=== PATIENT | female | born 1995 | race Caucasian/White ===

== ENCOUNTER 2017-12-03 11:16 | Emergency (ER) | payer BC ==
[2017-12-03] MEDS ORDERED: NA CHLORIDE 0.9% 1,000 ML ONE ×2 (11:54→14:40)
[2017-12-03 12:04] LABS: Absolute Lymphocytes (CBC) 1.3 K/uL (0.7-4.9); Absolute Monocytes 0.8 K/uL (0.1-1.3); Absolute Neutrophil 9.1 K/uL (1.8-8.0); Basophils % 0.4 % (0-1.3); Eosinophils % 0.4 % (0-4.4); Hematocrit 39.4 % (36.0-45.0); Lymphocytes % 11.7 % (15.3-44.8); MCH 25.5 pg (27.0-35.0); MCV 79.9 fL (80-100); MPV 8.5 fL (7.6-11.3); RBC Red Blood Cell Count 4.93 M/uL (3.86-4.86)
[2017-12-03 12:18] LABS: BUN Blood Urea Nitrogen 13 mg/dL (6-20); Bicarbonate 25 mEq/L (21-31); Glucose Level 112 mg/dL (65-120); Potassium 3.4 mEq/L (3.6-5.0); Sodium Level 137 mEq/L (135-145)
[2017-12-03 12:34] LABS: T3 Free 4.19 pg/ml (2.84-4.24)
[2017-12-03 12:52] LABS: Thyroid Stimulating Hormone 0.41 uIU/mL (0.34-5.60)
--- NOTE | 2017-12-03 13:04 | RAD REPORT ---
EXAM DESCRIPTION: US - Thyroid Para Parotid Gland - 12/03/2017 12:32 pm CLINICAL HISTORY: ICD R 22.1 thyroid nodule COMPARISON: None FINDINGS: The right lobe of the thyroid measures 4.3 x 1.6 x 1.3 centimeters. The left lobe of the thyroid measures 4.3 x 1.4 x 1.5 centimeters. Several nodules are present within each lobe of the thyroid gland measuring a couple of millimeters. IMPRESSION: Small bilateral thyroid nodules measuring a couple millimeters likely are benign
--- NOTE | 2017-12-03 14:39 | EKG ---
Test Date: 2017-12-03 Test Time: 11:56:53 Mold Carpenter: BOB MEASUREMENT RESULTS: Intervals: Rate: 133 NE: 128 QRSD: 68 QT: 306 QTc: 455 [place]: P: 74 NE: 128 QRS: 70 T: -3 INTERPRETIVE STATEMENTS: Sinus tachycardia Right atrial enlargement Nonspecific ST abnormality Abnormal QRS-T angle, consider primary T wave abnormality Abnormal ECG No previous ECG available for comparison Electronically Signed On 12-03-17 14:39:07 CDT by Ryan Morales
[2017-12-03] MEDS ORDERED: POTASSIUM CL SA 10 MEQ TAB PO ONE (14:40)
--- NOTE | 2017-12-03 15:03 | EDPHYS ---
Physician Documentation [facility] Name: Renae Barajas Age: 22 yrs Sex: Female : 1995 Arrival Date: 12/03/2017 Time: 11:21 Bed 14 Private MD: ED Physician Luis Armando Zacarias HPI: 12/03 14:59 This 22 yrs old Female presents to ER via Ambulatory with complaints of kb Palpitations. 14:[address] Butts's office for annual exam, heart rate was 180 in the office so kb she was sent to the ER. Denies shortness of breath, palpitations, chest pain. Only complaint is being "tired because I didn't sleep much last night.". Onset: The symptoms/episode began/occurred just prior to arrival. Severity of symptoms: At their worst the symptoms were severe in the emergency department the symptoms are unchanged. The patient has not experienced similar symptoms in the past. The patient has not recently seen a physician. Historical: - Allergies: 11:25 No Known Allergies; hb - Home Meds: 12:08 clonazepam 1 mg Oral tab at bedtime [Active]; Vyvanse 60 mg oral cap 1 cap once daily aa5 [Active]; [place] Thyroid 30 mg Oral tab [Active]; cabergoline 0.5 mg oral tab 2 times per wk [Active]; - PMHx: 11:25 ADD/ADHD; hb 11:26 hyperthyroidism; hb - PSHx: 11:25 None; hb - Immunization history:: Adult Immunizations up to date. - Social history:: Smoking status: Patient/guardian denies using tobacco. ROS: 14:59 Constitutional: Negative for fever, chills, and weight loss, ENT: Negative for injury, kb pain, and discharge, Neck: Negative for injury, pain, and swelling, Cardiovascular: Negative for chest pain, palpitations, and edema, Respiratory: Negative for shortness of breath, cough, wheezing, and pleuritic chest pain, Abdomen/GI: Negative for abdominal pain, nausea, vomiting, diarrhea, and constipation, Back: Negative for injury and pain, : Negative for injury, bleeding, discharge, and swelling, MS/Extremity: Negative for injury and deformity, Skin: Negative for injury, rash, and discoloration, Neuro: Negative for headache, weakness, numbness, tingling, and seizure. Exam: 14:59 Constitutional: This is a well developed, well nourished patient who is awake, alert, kb and in no acute distress. Head/Face: Normocephalic, atraumatic. ENT: Nares patent. No nasal discharge, no septal abnormalities noted. Tympanic membranes are normal and external auditory canals are clear. Oropharynx with no redness, swelling, or masses, exudates, or evidence of obstruction, uvula midline. Mucous membranes moist. Neck: Trachea midline, no thyromegaly or masses palpated, and no cervical lymphadenopathy. Supple, full range of motion without nuchal rigidity, or vertebral point tenderness. No Meningismus. Chest/axilla: Normal chest wall appearance and motion. Nontender with no deformity. No lesions are appreciated. Respiratory: Lungs have equal breath sounds bilaterally, clear to auscultation and percussion. No rales, rhonchi or wheezes noted. No increased work of breathing, no retractions or nasal flaring. Abdomen/GI: Soft, non-tender, with normal bowel sounds. No distension or tympany. No guarding or rebound. No evidence of tenderness throughout. Back: No spinal tenderness. No costovertebral tenderness. Full range of motion. Skin: Warm, dry with normal turgor. Normal color with no rashes, no lesions, and no evidence of cellulitis. MS/ Extremity: Pulses equal, no cyanosis. Neurovascular intact. Full, normal range of motion. Neuro: Awake and alert, GCS 15, oriented to person, place, time, and situation. Cranial nerves II-XII grossly intact. Motor strength 5/5 in all extremities. Sensory grossly intact. Cerebellar exam normal. Normal gait. 14:59 Cardiovascular: Rate: tachycardic, Rhythm: regular, Pulses: no pulse deficits are appreciated, Heart sounds: normal, normal S1and S2, no S3 or S4. Vital Signs: 11:22 BP 127 / 90; Pulse 179; Resp 16; Temp 97.9; Pulse Ox 98% on R/A; Pain 0/10; hb 12:52 BP 114 / 70; Pulse 135; Resp 18; Pulse Ox 98% ; ph 13:30 BP 111 / 85; Pulse 117; Resp 21; Pulse Ox 99% on R/A; mh5 15:11 BP 117 / 84; Pulse 109; Resp 18; Temp 97.4; Pulse Ox 98% on R/A; ph 16:30 BP 117 / 78; Pulse 106; Resp 18; Temp 97.2; Pulse Ox 98% on R/A; ph MDM: 11:27 Patient medically screened. kb 14:58 Data reviewed: vital signs, nurses notes. Data interpreted: Pulse oximetry: on room air kb is 99 %. Interpretation: normal. Counseling: I had a detailed discussion with the patient and/or guardian regarding: the historical points, exam findings, and any diagnostic results supporting the discharge/admit diagnosis, lab results, radiology results, the need for outpatient follow up, Endocrine, to return to the emergency department if symptoms worsen or persist or if there are any questions or concerns that arise at home. 16:10 ED course: Pt condition discussed with Dr Zacarias. Will start propranolol and pt will kb follow up with panel monitor. . 12/03 11:35 Order name: CBC with Diff; Complete Time: 12:16 kb 12/03 11:35 Order name: Basic Metabolic Panel; Complete Time: 12:52 kb 12/03 11:35 Order name: TSH; Complete Time: 12:52 kb 12/03 11:35 Order name: T3 Free; Complete Time: 12:52 kb 12/03 11:35 Order name: T4 Free; Complete Time: 12:52 kb 12/03 12:14 Order name: Prolactin EDRI 12/03 11:45 Order name: Thyroid Para Parotid Gland; Complete Time: 13:06 EDRI 12/03 12:54 Order name: Strep; Complete Time: 14:09 kb 12/03 13:56 Order name: Throat Culture EDRI 12/03 15:01 Order name: Urine Dipstick--Ancillary (enter results); Complete Time: 15:05 bd 12/03 15:01 Order name: Urine --Ancillary (enter results); Complete Time: 15:05 bd 12/03 11:35 Order name: IV Start; Complete Time: 11:52 kb 12/03 11:35 Order name: Urine Dipstick-Ancillary (obtain specimen); Complete Time: 16:57 kb 12/03 11:35 Order name: Urine Test (obtain specimen); Complete Time: 16:57 kb 12/03 11:41 Order name: EKG; Complete Time: 11:41 kb 12/03 11:41 Order name: EKG - Nurse/Tech; Complete Time: 12:05 kb Administered Medications: 11:59 Drug: NS 0.9% 1000 ml Route: IV; Rate: 1000 ml; Site: left antecubital; aa5 16:57 Follow up: Response: No adverse reaction; IV Status: Completed infusion ph 14:24 Not Given (Physician Discretion): Propranolol 10 mg PO once kb 14:45 Drug: Potassium Chloride 20 mEq Route: PO; ph 16:56 Follow up: Response: No adverse reaction ph 14:45 Drug: NS 0.9% 1000 ml Route: IV; Rate: 1000 ml; Site: right antecubital; ph 16:56 Follow up: Response: No adverse reaction; IV Status: Completed infusion ph 16:54 Drug: Propranolol 10 mg Route: PO; ph 16:56 Follow up: Response: No adverse reaction ph Disposition: 20:55 Co-signature as Attending Physician, Luis Armando Zacarias MD. rn Disposition: 12/03/17 15:03 Discharged to Home. Impression: Tachycardia, unspecified, Dehydration. - Condition is Stable. - Discharge Instructions: Hyperthyroidism. - Prescriptions for Propranolol 10 mg Oral Tablet - take 1 tablet by ORAL route every 8 hours; 21 tablet. - Medication Reconciliation Form, Thank You Letter, Antibiotic Education, Prescription Opioid Use form. - Follow up: Emergency Department; When: As needed; Reason: Worsening of condition. Follow up: Private Physician; When: 2 - 3 days; Reason: Recheck today's complaints, Continuance of care, Re-evaluation by your physician. Signatures: Dispatcher [employer] EDRI Sima Angel, OBSTETRICIAN-C OBSTETRICIAN-Ckb Luis Armando Zacarias MD MD rn Calderon, Audri, RN RN aa5 Marlena King, MATTEO RN Vera Carcamo, RN RN Corrections: (The following items were deleted from the chart) 12:08 11:25 Home Meds: vivance; hb aa5 12:08 11:25 Home Meds: clonazepam 1 mg Oral tab nightly; hb aa5 12:08 11:26 Home Meds: unknown hyperthyroid med; hb aa5 16:58 15:03 12/03/2017 15:03 Discharged to Home. Impression: Tachycardia, unspecified; ph Dehydration. Condition is Stable. Forms are Medication Reconciliation Form, Thank You Letter, Antibiotic Education, Prescription Opioid Use. Follow up: Emergency Department; When: As needed; Reason: Worsening of condition. Follow up: Private Physician; When: 2 - 3 days; Reason: Recheck today's complaints, Continuance of care, Re-evaluation by your physician. kb
--- NOTE | 2017-12-03 15:03 | ER ---
Nurse's Notes [facility] Name: Renae Barajas Age: 22 yrs Sex: Female : 1995 Arrival Date: 12/03/2017 Time: 11:21 Bed 14 Private MD: Diagnosis: Tachycardia, unspecified;Dehydration Presentation: 12/03 11:23 Presenting complaint: Patient states: N/V/D x [address] Butts's office hb for HR 180s. Transition of care: patient was received from another setting of care (ambulatory primary care physician practice), Dr. Butts. Onset of symptoms was December 03, 2017. Initial Sepsis Screen: Does the patient meet any 2 criteria?. Care prior to arrival: None. 11:23 Method Of Arrival: Ambulatory hb 11:23 Acuity: HARRIET 2 hb 12:52 Initial Sepsis Screen: Does the patient have a suspected source of infection? No. ph Patient's initial sepsis screen is negative. Historical: - Allergies: 11:25 No Known Allergies; hb - Home Meds: 12:08 clonazepam 1 mg Oral tab at bedtime [Active]; Vyvanse 60 mg oral cap 1 cap once daily aa5 [Active]; [place] Thyroid 30 mg Oral tab [Active]; cabergoline 0.5 mg oral tab 2 times per wk [Active]; - PMHx: 11:25 ADD/ADHD; hb 11:26 hyperthyroidism; hb - PSHx: 11:25 None; hb - Immunization history:: Adult Immunizations up to date. - Social history:: Smoking status: Patient/guardian denies using tobacco. Screenin:05 Abuse screen: Denies threats or abuse. Denies injuries from another. Nutritional ph screening: No deficits noted. Tuberculosis screening: No symptoms or risk factors identified. Fall Risk None identified. Assessment: 11:45 General: Appears in no apparent distress. comfortable, slender, well groomed, Behavior ph is calm, cooperative, appropriate for age, Denies fever, feeling ill. Pain: Denies pain. Neuro: Level of Consciousness is awake, alert, obeys commands, Oriented to person, place, time, situation. Cardiovascular: Reports fatigue, nausea, vomiting, Denies chest pain, palpitations, shortness of breath, Capillary refill < 3 seconds in bilateral fingers Patient's skin is warm and dry. Rhythm is sinus tachycardia. Respiratory: Airway is patent Respiratory effort is even, unlabored, Respiratory pattern is regular, symmetrical. GI: Abdomen is flat, non-distended, Bowel sounds present X 4 quads. Abd is soft and non tender X 4 quads. Reports diarrhea, nausea, vomiting, x 2 days. Derm: Skin is intact, is healthy with good turgor, Skin is pink, warm \T\ dry. Musculoskeletal: Circulation, motion, and sensation intact. Range of motion: intact in all extremities. 12:48 Reassessment: Patient appears in no apparent distress at this time. Patient and/or ph family updated on plan of care and expected duration. Pain level reassessed. Patient is alert, oriented x 3, equal unlabored respirations, skin warm/dry/pink. Pt ambulated to restroom, gait steady, denies dizziness, urine sample obtained, family at bedside, awiaiting lab results. 15:12 Reassessment: Patient appears in no apparent distress at this time. Patient and/or ph family updated on plan of care and expected duration. Pain level reassessed. Patient is alert, oriented x 3, equal unlabored respirations, skin warm/dry/pink. ERP at bedside to speak w/ pt, awaiting discharge, family at bedside. 16:00 Reassessment: Patient appears in no apparent distress at this time. Patient and/or ph family updated on plan of care and expected duration. Pain level reassessed. Patient is alert, oriented x 3, equal unlabored respirations, skin warm/dry/pink. Pt resting quietly, denies pain or nausea, awaiting medication from pharmacy before dischcarge. Vital Signs: 11:22 BP 127 / 90; Pulse 179; Resp 16; Temp 97.9; Pulse Ox 98% on R/A; Pain 0/10; hb 12:52 BP 114 / 70; Pulse 135; Resp 18; Pulse Ox 98% ; ph 13:30 BP 111 / 85; Pulse 117; Resp 21; Pulse Ox 99% on R/A; mh5 15:11 BP 117 / 84; Pulse 109; Resp 18; Temp 97.4; Pulse Ox 98% on R/A; ph 16:30 BP 117 / 78; Pulse 106; Resp 18; Temp 97.2; Pulse Ox 98% on R/A; ph ED Course: 11:21 Patient arrived in ED. mr 11:24 Triage completed. hb 11:26 Arm band placed on right wrist. hb 11:27 Sima Angel FNP-C is [facility]. kb 11:27 Luis Armando Zacarias MD is Attending Physician. kb 11:40 Marlena King, MATTEO is Primary Nurse. ph 11:42 Missed attempt(s): 20 gauge in right antecubital area. Bleeding controlled, band aid aa5 applied, catheter tip intact. 11:45 Initial lab(s) drawn, by me, sent to lab. Inserted saline lock: 20 gauge in left aa5 antecubital area, using aseptic technique. Blood collected. 12:05 Patient has correct armband on for positive identification. Placed in gown. Bed in low ph position. Call light in reach. Side rails up X 1. campus monitor on. Pulse ox on. NIBP on. Warm blanket given. 12:07 Note: US DONE PORT. aa4 12:07 Thyroid Para Parotid Gland In Process Unspecified. EDMS 12:28 EKG done, by reuse technician. reviewed by Sima PERKINS. sm3 15:14 No provider procedures requiring assistance completed. ph 16:56 IV discontinued, intact, bleeding controlled, No redness/swelling at site. Pressure ph dressing applied. Administered Medications: 11:59 Drug: NS 0.9% 1000 ml Route: IV; Rate: 1000 ml; Site: left antecubital; aa5 16:57 Follow up: Response: No adverse reaction; IV Status: Completed infusion ph 14:24 Not Given (Physician Discretion): Propranolol 10 mg PO once kb 14:45 Drug: Potassium Chloride 20 mEq Route: PO; ph 16:56 Follow up: Response: No adverse reaction ph 14:45 Drug: NS 0.9% 1000 ml Route: IV; Rate: 1000 ml; Site: right antecubital; ph 16:56 Follow up: Response: No adverse reaction; IV Status: Completed infusion ph 16:54 Drug: Propranolol 10 mg Route: PO; ph 16:56 Follow up: Response: No adverse reaction ph Outcome: 15:03 Discharge ordered by . kb 16:55 Discharged to home ambulatory, with family. ph 16:55 Condition: good 16:55 Discharge instructions given to patient, Instructed on discharge instructions, follow up and referral plans. medication usage, Demonstrated understanding of instructions, follow-up care, medications, Prescriptions given X 1. 16:58 Patient left the ED. ph Signatures: Dispatcher [employer] EDSima Robbins, GREGORIO ALEXIS-Jessica Vieyra mr CorleyTreasure ricardo aa4 Caron Valentine, MATTEO RN aa5 Marlena King RN RN Vera Carcamo RN RN Jessica Saunders [facility] [place] 3 Corrections: (The following items were deleted from the chart) 12: 11:25 Home Meds: vivance; [facility] 12: 11:25 Home Meds: clonazepam 1 mg Oral tab nightly; [facility] 12:08 11:26 Home Meds: unknown hyperthyroid med; [facility]
[2017-12-03 15:05] LABS: Urine Blood NEGATIVE (NEG); Urine Glucose NEGATIVE (NEG); Urine Protein TRACE (NEG); Urine Specific Gravity 1.015 (1.005-1.030); Urine pH 5.5 (5.0-7.0)
[2017-12-03] MEDS ORDERED: PROPRANOLOL HCL 10 MG TAB PO ONE (17:00)
== END 2017-12-03 16:58 | disposition home or self-care (01) ==
LOC: ER 11:16
DX: E86.0 Dehydration (principal); F90.9 Attention-deficit hyperactivity disorder, unspecified type
CPT/HCPCS: 36415; 76536; 80048; 81003; 81025; 84146; 84439; 84443; 84481; 85025; 87070; 87081; 93005; 96360; 96361; 99285; J7030